=== PATIENT | female | born 1985 | race Caucasian/White ===

== ENCOUNTER 2023-03-20 16:38 | Emergency (ER) | payer BC, SELFPAY ==
[2023-03-20 16:41] VITALS: BP 122/74; PULSE 78; RESP 16; TEMP 36.9; O2SAT 95
--- NOTE | 2023-03-20 17:22 | ED.EAR ---
HPI - Ear Problem General Chief complaint: Ear Stated complaint: ear pain Time Seen by Provider: 03/20/23 17:16 Source: patient and other (friend) Mode of arrival: ambulatory Limitations: no limitations History of Present Illness HPI Narrative: Patient is a 37-year-old female who presents emergency department today ambulatory who has complaints of left ear pain that started 3 nights ago. States it is keeping her up at night. She states that if she moves her head she has nausea and dizziness. denies vomiting. She states that she started having drainage including bloody and pus drainage. She states it is extremely painful. It hurts to touch and hurts on the outside. She denies any injury to the ear or the head. She states that she was getting her hair done and then it just started to hurt. Denies fever or chills. Denies any recent respiratory illness. Denies any headache or other symptoms. denies chance of . Related Data Allergies Allergy/AdvReac Type Severity Reaction Status Date / Time latex Allergy Rash Verified 03/20/23 17:37 Review of Systems Review of Systems: CONSTITUTIONAL: Denies fever, chills, or sweats. EYES: Denies visual changes, redness, or discharge. ENT: left ear pain, swelling, pus and blood drainage. Denies rhinorrhea, congestion, sore throat CARDIOVASCULAR: Denies chest pain, palpitations, or edema. RESPIRATORY: Denies cough or dyspnea. GASTROINTESTINAL: +nausea present. Denies abdominal pain,, vomiting, or diarrhea. SKIN: Denies rash or itching. NEUROLOGIC: dizziness with changes in position of head. denies headache. PSYCHIATRIC: Denies anxiety or depression. All systems reviewed & are unremarkable except as noted in HPI and below Exam Narrative: GENERAL: Well-appearing, well-nourished, and in no acute distress. HEAD: Normocephalic, atraumatic. EYES: PERRLA and EOMI. ENT: left outer ear canal with swelling/tenderness. there is purulent malodorous drainage noted with TM with perforation and large amount of pus effusion. right ear shows mild injected TM- no bulging or drainage or tenderness. There is no mastoid tenderness bilaterally. Nares clear, no rhinorrhea or epistaxis. Mucous membranes moist. NECK: Supple. CHEST: respirations regular and non-labored. HEART: Regular rate and rhythm. SKIN: Warm, dry, no rash. NEURO: No focal deficits. Alert and oriented x3. PSYCH: Normal mood and affect. Course Vital Signs Vital signs: Vital Signs Temperature 98.4 F 03/20/23 16:41 Pulse Rate 78 03/20/23 16:41 Respiratory Rate 16 03/20/23 16:41 Blood Pressure 122/74 03/20/23 16:41 Pulse Oximetry 95 03/20/23 16:41 Oxygen Delivery Room Air 03/20/23 16:41 Temperature 98.4 F 03/20/23 16:41 Pulse Rate 78 03/20/23 16:41 Respiratory Rate 16 03/20/23 16:41 Blood Pressure 122/74 03/20/23 16:41 Pulse Oximetry 95 03/20/23 16:41 Oxygen Delivery Room Air 03/20/23 16:41 Medical Decision Making MDM Narrative Medical decision making narrative: patient presents for left ear pain with drainage. On assessment there is noted both external otitis media as well as a TM perforation with purulent drainage. Will treat pulse oral antibiotics and antibiotic drops. Discussed other supportive care measures including Ultram between Tylenol and ibuprofen as well as appropriate follow-up. Will prescribe Zofran for any nausea. Patient is nontoxic in appearance. Stable re-evaluation exam just before discharge. Patient in no acute distress. Vitals within normal limits. Discussed return precautions with the patient including all the red flag signs or symptoms of when to return the patient. The patient verbalized understanding and was agreeable with discharge and close follow-up Differential Diagnosis Differential Diagnosis: otitis externa, otitis media, viral URI, Vital Signs Vital Signs: Vital Signs Temperature 98.4 F 03/20/23 16:41 Pulse Rate 78
[2023-03-20] MEDS: KETOROLAC 30 MG/ML VIAL (*BKC) IM (17:58)
[2023-03-20] MEDS: ONDANSETRON HCL ODT 4 MG TABLET PO (17:59)
== END 2023-03-20 18:07 | disposition home or self-care (01) ==
PROVIDERS: Emergency Provider Nurse Practitioner
DX: H66.92 Otitis media, unspecified, left ear (principal); H72.92 Unspecified perforation of tympanic membrane, left ear; H60.392 Other infective otitis externa, left ear
CPT/HCPCS: 96372; 99283; A9270; J1885